=== PATIENT | female | born 1965 | race Caucasian/White ===

== ENCOUNTER → 2020-06-07 08:34 | Outpatient (POV) | payer MEDICARE, SELFPAY | PROVIDERS: Visit Provider Dermatology | DX: Z00.00 Encounter for general adult medical examination without abnormal findings (principal) ==

== ENCOUNTER 2020-12-26 08:13 | Emergency (ER) | payer MEDICARE, SELFPAY ==
[2020-12-26 08:15] VITALS: BP 161/101; PULSE 106; RESP 18; TEMP 36.6; O2SAT 97; BMI 49.8
--- NOTE | 2020-12-26 08:27 | XR_ITS ---
PROCEDURE: XR FOOT LT MIN 3V CLINICAL INDICATION: medial left foot pain COMPARISON: No exams were available for comparison FINDINGS: No fracture or dislocation. No lytic or blastic change. There is normal mineralization. Minimal osteoarthritic changes are present at the 1st MTP joint and talonavicular joint. Other findings:There is a small calcaneal spur. IMPRESSION: Minimal osteoarthritic changes 1st MTP joint and talonavicular joint. Dictated by: Eagle Saul MD 12/26/2020 09:26 Eagle Saul MD in [place] 12/26/2020 09:26
--- NOTE | 2020-12-26 08:28 | HMH.EDGENADL ---
ED Disposition Clinical Impression: Foot pain, left Disposition: Home, Self-Care Condition on Discharge: Good Additional Instructions: Ice your foot and trying keep it elevated as you are able. Avoid strenuous activity, continue taking acetaminophen today. Return to the emergency department for any new or concerning symptoms, if your foot continues hurting after 3 days follow-up with your primary care physician. Referrals: Mani Mai [Primary Care Provider] - - Critical Care Critical Care Time: No Attestation: On 12/26/20, the high probability of a clinically significant, sudden or life threatening deterioration of the following system(s) required my full and direct attention, intervention and personal management. The time I documented below is in addition to time spent performing reported procedures but includes the following listed in this critical care notation. Medical Decision Making - Medical Records Medical records reviewed: Yes: I reviewed the patient's medical records. - Patrick Inquiry Pt receiving controlled substance: No Patrick was queried for this patient: No Vital Signs: 12/26/20 08:15 Temperature 97.9 F Temperature Source Oral Pulse Rate [Left Radial] 106 H Respiratory Rate 18 Blood Pressure [Right Arm] 161/101 H Blood Pressure Mean [Right Arm] 121 Blood Pressure Source [Right Arm] Automatic Cuff Blood Pressure Position [Right Arm] Sitting 02 Sat by Pulse Oximetry 97 Medical Decision Narrative: Patient is a 55-year-old female past medical history of arthritis presenting to the emergency department with left foot pain. Given the mechanism, differential diagnosis includes musculoskeletal tear, avulsion fracture, contusion, among others. Given this plan to order x-ray of the foot and reassess. Patient is in no significant pain here in the emergency department, took a tramadol as well as to ask her strength Tylenols prior to coming, has Mobic at home, has no significant pain and is able to ambulate, given this was not given additional analgesia while here. Patient no acute fracture, for continued to look well on reevaluation given this patient was discharged in stable condition. General Adult HPI - General Stated complaint: left foot weakness Time Seen by Provider: 12/26/20 08:30 Mode of Arrival: Ambulatory Source of Information: Patient Limitations: No Limitations - History of Present Illness HPI narrative: She is a 55-year-old female with past medical history of arthritis, hyperlipidemia, chronic back pain who presented to the emergency department with chief complaint of left foot pain. Patient states that she was getting up out of a chair she stepped on her foot oddly, and rolled forward on it while her foot went backwards. She is currently complaining of left-sided foot pain at her toe, and on the medial side of her left foot. She states that she was able to walk on it immediately after, she has not noticed any swelling or bruising. Has any additional falls, states that she is concerned regarding a sprain. Has had no fever, chest pain, shortness of breath, has no numbness tingling of her feet, no weakness, but does state that it hurts if she tries to bend it completely. - Related Data Allergies Allergy/AdvReac Type Severity Reaction Status Date / Time Sulfamethoxazole Allergy Unknown Uncoded 02/26/17 14:57 [facility] History - Hepatitis A Screen Attestation statement:: This patient has been screened for Hepatitis A risk factors. I have reviewed the patient's past medical history: Yes Family Hx:: No significant family history ROS Obtained: Yes All systems reviewed & no additional complaints - Constitutional Constitutional: Denies fever(s) - Cardiovascular Cardiovascular: Denies chest pain - Respiratory Respiratory: Denies shortness of breath - Integumentary/Breasts Skin/Breast: Denies system reviewed and no additional complaints, except as docu Physical Exa
[2020-12-26 08:31] VITALS: BP 161/96; PULSE 90; O2SAT 97
[2020-12-26 09:30] VITALS: BP 155/93; PULSE 90; O2SAT 95
[2020-12-26 09:52] VITALS: BP 155/93; PULSE 84; RESP 20; TEMP 36.6; O2SAT 95
== END 2020-12-26 09:53 | disposition home or self-care (01) ==
PROVIDERS: Emergency Provider Emergency Medicine; PCP Family Medicine
DX: M79.672 Pain in left foot (principal); E78.5 Hyperlipidemia, unspecified
CPT/HCPCS: 73630; 99282

== ENCOUNTER 2023-11-14 09:52 | Emergency (ER) | payer MEDICARE, SELFPAY ==
[2023-11-14 10:15] VITALS: BP 131/86; PULSE 101; RESP 20; TEMP 36.7; O2SAT 96; BMI 39.3
--- NOTE | 2023-11-14 10:33 | ED_ITS ---
Discharge Plan Disposition Patient Disposition: Home, Self-Care Condition: Good Prescriptions Prescriptions: New cephalexin 500 mg capsule 500 mg PO BID 7 Days Qty: 14 0RF phenazopyridine [Pyridium] 200 mg tablet 200 mg PO Q8H 2 Days Qty: 6 0RF No Action venlafaxine 75 mg capsule,extended release 24hr 75 mg PO DAILY pravastatin 40 mg tablet 40 mg PO DAILY meloxicam 15 mg tablet 15 mg PO DAILY omeprazole 40 mg capsule,delayed release(DR/EC) 40 mg PO DAILY tramadol 50 mg tablet 50 mg PO DAILY lisinopril 10 mg tablet 10 mg PO DAILY zolpidem 10 mg tablet 10 mg PO DAILY Referrals Follow up/Referrals: Mani Mai MD [Primary Care Provider] - See instructions Activity Restrictions/Add. Instructions Additional Instructions/Restrictions: *Increase fluids. Water not Soda or Tea *Start antibiotic immediately and be sure to take as ordered for the FULL length of time although you should start to see improvement over the next 48 hours *Pyridium as needed Remember this medication will turn your urine . This is normal but it will stain what ever it gets on *You should not use Pyridium for more than 48 hours. If so , follow up with your primary physician to review urine culture and ensure that antibiotic is adequate for infection *Be SURE to follow up anytime for new or worsening symptoms with your family doctor. AND in 48 hours for urine culture results with your family doctor, if you do not have a doctor then you may call back to the [facility] for urine culture results and further treatment. We do recommend that you choose and establish care with a Primary Care Physician. ?AND follow up with them ?in 10-14 days to repeat UA to ensure infection is resolved and blood no longer present *Be sure to let your PCP know that we sent urine cultures from the [facility] so they can follow up to ensure that you area the on the correct antibiotic Call your doctor office and make appointment for 48 hours (2 days from today) ?to follow up and get the results of your urine culture and further treatment Clinical Impressions Clinical Impression: UTI (urinary tract infection) Qualifiers: Urinary tract infection type: site unspecified Hematuria presence: with hematuria Qualified Code(s): N39.0 - Urinary tract infection, site not specified Instructions Patient Instructions: DI for Urinary Tract Infection (UTI), Cephalexin Print Language Print Language: [place] Discharge ED Provider: Madelyn Obrien [facility] [place] General Stated complaint: poss bladder infection Mode of Arrival: Ambulatory Source of Information: Patient Limitations: No Limitations Time Seen by Provider: 11/14/23 10:34 Description of Symptoms (Recalled from Triage Doc. by RN): PATIENT STATES SINCE LAST NIGHT SHE HAS BEEN URINATING SMALL AMOUNTS BUT FEELS LIKE SHE STILL NEEDS TO GO, AND THIS MORNING SHE WIPED BLOOD AFTER URINATING. PATIENT ALSO C/O BLADDER PRESSURE HEENT Symptoms (Recalled from RN notes): No Resp Symptoms (Recalled from RN notes): No Skin Symptoms (Recalled from RN notes): No MS Symptoms (Recalled from RN notes): No Functional Status (Recalled from RN notes): WNL History of Present Illness Provider Complaint: Patient states that she started yesterday with burning with urination, pressure, frequency and urgency So today when she was still having symptoms she came in to get checked Related Data Home Medications ?Medication ?Instructions ?Recorded ?Confirmed lisinopril 10 mg tablet 10 mg PO DAILY 11/14/23 11/14/23 meloxicam 15 mg tablet 15 mg PO DAILY 11/14/23 11/14/23 omeprazole 40 mg capsule,delayed 40 mg PO DAILY 11/14/23 11/14/23 release pravastatin 40 mg tablet 40 mg PO DAILY 11/14/23 11/14/23 tramadol 50 mg tablet 50 mg PO DAILY 11/14/23 11/14/23 venlafaxine 75 mg capsule,extended 75 mg PO DAILY 11/14/23 11/14/23 release 24 hr zolpidem 10 mg tablet 10 mg PO DAILY 11/14/23 11/14/23 Previous Rx's ?Medication ?Instructions ?Recorded cephalexin 500 mg capsule 500 mg PO BID 7 days #14 caps 11/14/23 phenazopyridine 200 mg tablet 200 mg PO Q8H pain 2 days #6 tabs 11/14/23 (Pyridium) Allergies Allergy/AdvReac Type Severity Reaction Status Date / Time latex Allergy Redness of Verified 11/14/23 10:35 Skin meperidine [From Demerol] Allergy Redness of Verified 11/14/23 10:35 Skin morphine Allergy Palpitation Verified 11/14/23 10:35 s Sulfa (Sulfonamide Allergy Hives Verified 11/14/23 10:35 Antibiotics) Worker's Comp Is this a Worker's Comp case?: No [facility] Disclaimer: The information contained in this section may have been updated after the patient was seen, as this information can be updated by other users. Medical History (Updated 11/14/23 @ 10:38 by Madelyn Obrien APRN) Pre-diabetes Tendinitis UTI (urinary tract infection) GERD (gastroesophageal reflux disease) Depression Anxiety Migraine Hyperlipidemia Hypertension Surgical History (Updated 11/14/23 @ 10:37 by Leilani Suarez RN) History of knee surgery S/P removal of right ovary History of tubal ligation History of cholecystectomy Social History Smoking Status: Unknown if ever smoked alcohol intake: never current occupational status: retired Travel in the last 8 weeks: None ROS Obtained: Yes All systems reviewed & no additional complaints except as documented and Yes Systems reviewed as appropriate & no additional complaints except as documented Constitutional Constitutional: Reports system reviewed and no additional complaints, except as documented and Reports as per HPI Cardiovascular Cardiovascular: Reports system reviewed and no additional complaints, except as documented and Reports as per HPI Respiratory Respiratory: Reports system reviewed and no additional complaints, except as documented and Reports as per HPI Gastrointestinal Gastrointestingal: Reports system reviewed and no additional complaints, except as documented and as per HPI Genitourinary Female Genitourinary: Reports system reviewed and no additional complaints, except as documented, Reports as per HPI, Reports urinary frequency and Reports urinary urgency Musculoskeletal Musculoskeletal: Reports system reviewed and no additional complaints, except as documented and Reports as per HPI Physical Exam General General appearance: alert and in no apparent distress ENT ENT exam: Present mucous membranes moist Respiratory Respiratory exam: Present normal lung sounds bilaterally; Absent respiratory distress or wheezes Cardiovascular Cardiovascular exam: Present regular rate, normal rhythm and normal heart sounds Abdominal Exam Abdominal exam: Present soft and normal bowel sounds; Absent distention or tenderness Neurological Exam Neurological exam: Present alert, oriented X3 and normal gait Medical Decision Making Patrick Inquiry Pt receiving controlled substance: No Patrick was queried for this patient: No Vital Signs: 11/14/23 10:15 Temperature 98.0 F Temperature Source Oral Pulse Rate [Left Brachial] 101 H Respiratory Rate 20 Blood Pressure [Left Arm] 131/86 Blood Pressure Mean [Left Arm] 101 Blood Pressure Source [Left Arm] Automatic Cuff Blood Pressure Position [Left Arm] Sitting 02 Sat by Pulse Oximetry 96 Oxygen Delivery Method Room Air Lab Data Lab results reviewed: Yes I reviewed the patient's lab results.
[2023-11-14 10:39] VITALS: BP 131/86; PULSE 101; RESP 20; TEMP 36.7; O2SAT 96
[2023-11-14 10:56] LABS: Apearance,Urine Cloudy (Clear); Color,Urine Yellow (Yellow); PH,Urine 5.5 (5.0-8.5); Specific Gravity, Urine >= 1.030 (1.005-1.030)
[2023-11-14 10:57] LABS: Bilirubin,Urine 1+ (Negative); Blood, Urine 3+ (Negative); Glucose,Urine (UA) Negative (Negative); Ketones,Urine Negative (Negative); Protein,Urine 1+ (Negative); UTC Leukocyte Esterase,Urine Trace (Negative); UTC Nitrate,Urine Negative (Negative); Urobilinogen,Urine 2 EU/dl (0.2)
--- NOTE | 2023-11-16 11:00 | PC.NURSE ---
REVIEWED URINE CULTURE RESULTS WITH Analilia TREJO APRN, NO CHANGE NEEDED AT THIS TIME
== END 2023-11-14 10:41 | disposition home or self-care (01) ==
PROVIDERS: Emergency Provider Nurse Practitioner; PCP Family Medicine
DX: N39.0 Urinary tract infection, site not specified (principal); B96.29 Other Escherichia coli [E. coli] as the cause of diseases classified elsewhere; R31.9 Hematuria, unspecified; R30.0 Dysuria; R35.0 Frequency of micturition
CPT/HCPCS: 81003; 87086; 87088; 87186; 99204; 99212; G0463

== ENCOUNTER 2024-05-09 10:02 | Outpatient (CLI) | payer MEDICARE, SELFPAY | END 2024-05-09 23:59 | disposition home or self-care (01) | PROVIDERS: PCP Emergency Medicine; Visit Provider Nurse Practitioner Family | DX: R30.0 Dysuria (principal) | CPT/HCPCS: 87086; 87088; 87186 ==